=== PATIENT | female | born 1955 | race Caucasian/White ===

== ENCOUNTER → 2017-03-16 | Outpatient (CLI) | payer OTHER ==
[~2017-03-16] VITALS: Ht 177.8 cm; Wt 181.4 kg
[~2017-03-16] MED LIST: CENTRUM SILVER1 EAC4 PO; LO-DOSE ASPIRIN81 M1 PO; METFORMIN HCL500 M4 PO; PRINIVIL10 MG PO; PROTONIX40 MG PO; ULTRAM50 MG PO; VITAMIN D35000 UNIT PO
[2017-03-16 08:27] LABS: POINT-OF-CARE METER ID UU14174212
== END | disposition home or self-care (01) ==
LOC: AMB 07:43
PROVIDERS: Internal Medicine
DX: K22.10 Ulcer of esophagus without bleeding (principal); K29.70 Gastritis, unspecified, without bleeding; I10 Essential (primary) hypertension; E11.42 Type 2 diabetes mellitus with diabetic polyneuropathy; D64.9 Anemia, unspecified; E66.01 Morbid (severe) obesity due to excess calories; Z68.43 Body mass index [BMI] 50.0-59.9, adult; Z79.82 Long term (current) use of aspirin; Z79.84 Long term (current) use of oral hypoglycemic drugs; Z83.3 Family history of diabetes mellitus; Z82.49 Family history of ischemic heart disease and other diseases of the circulatory system; Z82.3 Family history of stroke; Z83.49 Family history of other endocrine, nutritional and metabolic diseases
CPT/HCPCS: 82948; 88305; 88342 TC; 93005; J3010